=== PATIENT | female | born 1950 | race Caucasian/White ===

== ENCOUNTER 2018-05-20 16:29 | Inpatient (IN) ==
[2018-05-20 16:43] LABS: BE -4.4 mmoll (-3.0-3.0); BLOOD TYPE ARTERIAL; HCO3-(ACT) 21.1 mmoll (20.0-26.0); METHB 0.7 % (0.0-1.5); O2(CT) 19.3 mL/dL (15.0-23.0); PO2(98.6) 59 mmHg (60-100); SAMPLE BLOOD; SAO2 88.5 % (95.0-100.0)
[2018-05-20] MEDS ORDERED: DUONEB (A & A) INH ONE (16:49)
[2018-05-20 16:50] LABS: BASO# 0.01 X1000 (0.0-0.2); BASO% 0.1 % (0.0-0.8); HEMATOCRIT 45.4 % (37.0-47.0); HEMOGLOBIN 15.4 g/dL (12.0-16.0); IMM GRAN# 0.02 X1000 (0.0-0.04); IMM GRAN% 0.2 % (0.0-0.5); LYMPH# 0.99 X1000 (1.2-3.4); LYMPH% 11.2 % (20.5-51.1); MCHC 33.9 g/dL (33-37); MCV 97.2 FL (81-99); MONO# 0.82 X1000 (0.11-0.59); MONO% 9.3 % (1.7-9.3); MPV 9.5 FL (7.4-10.4); NEUT# 7.01 X1000 (1.4-6.5); NEUT% 79.2 % (42.2-75.2); PLT 143 X1000 (130-400); RBC 4.67 XMIL (4.2-5.4); RDW 11.8 % (11.5-14.5); WBC 8.85 X1000 (4.8-10.8)
[2018-05-20] MEDS ORDERED: PREDNISONE PO ONE (16:50)
[2018-05-20] MEDS ORDERED: ALBUTEROL NEB INH ONE (16:50)
[2018-05-20 17:18] LABS: pH(98.6) 7.25 (7.35-7.45)
[2018-05-20 17:19] LABS: PCO2(98.6) 54 mmHg (35-45)
[2018-05-20 17:20] LABS: ALLEN TEST YES; MODALITY ROOM AIR
[2018-05-20 17:48] LABS: AGAP 15; ALBUMIN 4.1 g/dL (3.5-5.0); ALKALINE PHOSPHATASE 180 U/L (32-104); BUN 21 mg/dL (8-22); CALCIUM 9.2 mg/dL (8.8-10.2); CHLORIDE 92 mmol/L (98-107); COSMO 266; CREATININE 0.7 mg/dL (0.5-0.9); ESTIMATED GFR > 60; GLUCOSE 101 mg/dL (70-104); GOT 104 U/L (10-30); GPT 124 U/L (10-36); MAGNESIUM 1.8 mg/dL (1.5-2.7); POTASSIUM 4.4 mmol/L (3.5-5.1); SODIUM 131 mmol/L (136-145); TCO2 24 mmol/L (25-35); TOTAL PROTEIN 7.2 g/dL (6.3-8.3)
--- NOTE | 2018-05-20 18:28 | ED EKG INTERP ---
This chart was entered by Heidy Clifford Scribe, acting as scribe for Juan Carr MD. EKG Interpretation - EKG Time of EKG reading by physician:: 18:19 EKG Read and Signed by:: Juan Carr EKG Interpretation (*Must complete 3 of following elements*): Normal Rate: 96 Rhythm: sinus with short [place]: normal QRS: normal TX Interval: shortened ST Wave: normal Attestation - Physician/ HEIKE Attestation Patient care was provided by Advanced Practice Provider:: No The physician spent face to face time with patient:: Yes Advanced Practice Provider documentation review:: Supervising physician onsite and consulted in the evaluation and care of this patient. The physician did have a face to face encounter with the patient. This chart was documented by the indicated scribe, (Heidy Clifford Scribe) and accurately reflects the services I performed and decisions made by me, Juan Carr MD, as attested by the provider's signature.
[2018-05-20 18:31] LABS: CK INDEX 3.5 (0.0-2.5); CK-MB 13.48 ng/mL (0.0-5.0)
--- NOTE | 2018-05-20 18:35 | PROVIDER DOCUMENTATION ---
This chart was entered by Alpesh Mayes Scribe, acting as scribe for Juan Carr MD. HPI-Respiratory General - General Chief Complaint: Shortness of Breath Stated Complaint: sob Time Seen by Provider: 05/20/18 16:31 Source: patient Allergies/Adverse Reactions: Patient Allergies Allergy/AdvReac Type Severity Reaction Status Date / Time ciprofloxacin [From Cipro] Allergy Intermediate RASH Verified 02/19/12 11:55 ciprofloxacin HCl * Allergy Intermediate RASH Verified 02/19/12 11:55 [From Cipro] Home Medications: Home Medication List Medication Instructions Recorded Confirmed Last Taken Type Albuterol Sulfate [Ventolin Hfa] 2 puff IH BID PRN PRN 02/19/12 02/19/12 04:30 History Budesonide/Formoterol Fumarate 2 puff IH BID 02/19/12 02/19/12 02/20/12 04:30 History [Symbicort 160-4.5 Mcg Inhaler] Calcium 500 mg PO DAILY 02/19/12 02/19/12 02/18/12 History Calcium Carbonate/Vitamin D3 1,200 mg DAILY 02/19/12 02/19/12 02/18/12 History [Calcium 1,000 + D3 Caplet] Cetirizine HCl [Zyrtec] 10 mg PO DAILY 02/19/12 02/19/12 Unknown History Cyclobenzaprine [Flexeril] 5 mg PO DAILY PRN PRN 02/19/12 02/19/12 Unknown History Docusate Sodium [Stool Softener] 100 mg PO HS 02/19/12 02/19/12 02/20/12 23:00 History Hydrochlorothiazide 12.5 mg PO DAILY 02/19/12 02/19/12 02/19/12 06:00 History Hydrocodone/Acetaminophen [Lortab 1 PO Q4H PRN 02/19/12 02/19/12 02/18/12 History 7.5-500 Tablet] Melatonin/Pyridoxine [Melatonin 5 1 PO HS 02/19/12 02/19/12 02/19/12 23:00 History mg Tablet] Metoprolol Succinate E.r. [Toprol 100 mg PO DAILY 02/19/12 02/19/12 02/19/12 23: 00 History Xl] Omeprazole [Prilosec] 40 mg PO DAILY 02/19/12 02/19/12 Unknown History SIMVAstatin [Zocor] 40 mg PO QHS 02/19/12 02/19/12 02/19/12 23:00 History Simethicone [Gas-X] 1 PO TID 02/19/12 02/19/12 02/19/12 13:00 History Tetrahydrozoline HCl/Zn Sulf [Eye 2 drop BOTH EYES PRN PRN 02/19/12 02/19/1207/02 04:30 History Drops Allergy Relief] Hydrocodone/Acetaminophen [Lorcet 1 - 2 each PO Q4H PRN PRN #20 02/25/12 Unknown Rx Plus Tablet] tablet - History of Present Illness-Resp Nature of Presenting Problem: 67 yof presents with hx of copd with cc of worsening sob for 1 week. Reports quit smoking 2 weeks ago. Reports uses husbands nebulizer with no relief and uses an inhaler with no relief. Pt room air on arrival was 85%. Quality of Pain: reports: none Severity in ED: reports: severe Review of Systems - Adult - REVIEW OF SYSTEMS - ADULT Constitutional: denies: chills, fever, fatique Eyes: reports: no symptoms reported Ears, Nose, Mouth & Throat: denies: ear pain, sinus problem, throat pain Cardiovascular: denies: chest pain, irregular heart rate, syncope Respiratory: reports: shortness of breath. denies: cough, pleurisy, wheezing Gastrointestinal: denies: abdominal pain, diarrhea, nausea, vomiting Genitourinary: denies: dysuria, frequent UTI's, urgency Musculoskeletal: reports: no symptoms reported Integumentary: reports: no symptoms reported Neurological: reports: no symptoms reported Psychiatric: reports: no symptoms reported Endocrine: reports: no symptoms reported Hematologic/Lymphatic: reports: no symptoms reported Allergic/Immunologic: reports: no symptoms reported All Other Systems: Reviewed and Negative Past History - Adult - PAST MEDICAL HISTORY-ADULT Review of Records: reports: Nursing Assessment Review, Medications Reviewed - IMMUNIZATION STATUS Childhood Immunizations: See Nurse Assessment Flu Vaccine: See Nurse Assessment - FAMILY HISTORY Family History: reviewed, not pertinent - SOCIAL HISTORY Smoking: other (former) Substance Use: none/never Physical Exam-General - PHYSICAL EXAM-ADULT Initial Vital Signs Reviewed: Yes - CONSTITUTIONAL General Appearance: alert, moderate distress. negative: appears well - EYES Eyes: PERRL/EOMI - HEAD, EARS, NOSE, MOUTH & THROAT HENMT: normal ENT inspection, TMs normal, pharynx normal - NECK Neck: non-tender, full range of motion, supple, normal inspection - RESPIRATORY Respiratory: chest non-tender, respiratory distress, decreased breath sounds ( Bilateral), accessory muscle use, increased rate - CARDIOVASCULAR Cardiovascular: tachycardia - MUSCULOSKELETAL Back Exam: normal inspection Extremity: normal range of motion, non-tender, normal gait - SKIN Integumentary: normal color, normal turgor, warm/dry - NEUROLOGIC Neurologic: grossly normal - PSYCHIATRIC Psych/Mental Status: normal mood/affect, normal thought content, normal thought process, oriented x 3 Progress - PLAN OF CARE/RESULTS Progress/Plan/Lab Results: Vital Signs - 8 hr 05/20/18 16:31 05/20/18 16:47 05/20/18 18:10 Temperature 98 F Pulse Rate 98 H 100 H 96 H Respiratory Rate 29 H 24 20 Blood Pressure 181/103 132/70 O2 Sat by Pulse Oximetry 92 L 98 92 L Laboratory Results - last 24 hr 05/20/18 05/20/18 05/20/18 16:10 16:35 16:35 WBC RBC Hgb Hct MCV MCH MCHC RDW Std Deviation Plt Count MPV Immature Gran % (Auto) Neut % (Auto) Lymph % (Auto) Stokes % (Auto) Eos % (Auto) Baso % (Auto) Immature Gran # (Auto) Neut # (Auto) Lymph # (Auto) Stokes # (Auto) Eos # (Auto) Baso # (Auto) D-Dimer, Quantitative Specimen Type ARTERIAL Sample Site R RADIAL pH 7.25 L pCO2 54 H* pO2 59 L HCO3 21.1 Base Excess -4.4 L Oxyhemoglobin 86.0 L* ABG O2 Sat (Calculated) 19.3 ABG O2 Saturation 88.5 L ABG Carboxyhemoglobin 2.10 ABG Methemoglobin 0.7 Itz Test YES A-a O2 Difference 23.0 Total Hemoglobin 16.0 Lactate 1.20 Blood Gas Modality ROOM AIR FiO2 % 21.0 Sodium Potassium Chloride Carbon Dioxide Anion Gap BUN Creatinine Estimated GFR/1.73 m2 BUN/Creatinine Ratio Glucose Calculated Osmolality Calcium Magnesium Total Bilirubin AST ALT Alkaline Phosphatase Creatine Kinase 385 H Creatine Kinase Index 3.5 H CK-MB (CK-2) 13.48 H Troponin T < 0.010 [id number] Pept Total Protein Albumin Globulin Albumin/Globulin Ratio 05/20/18 05/20/18 05/20/18 16:35 16:35 16:35 WBC 8.85 RBC 4.67 Hgb 15.4 Hct 45.4 MCV 97.2 MCH 33.0 H MCHC 33.9 RDW Std Deviation 11.8 Plt Count 143 MPV 9.5 Immature Gran % (Auto) 0.2 Neut % (Auto) 79.2 H Lymph % (Auto) 11.2 L Stokes % (Auto) 9.3 Eos % (Auto) 0.0 Baso % (Auto) 0.1 Immature Gran # (Auto) 0.02 Neut # (Auto) 7.01 H Lymph # (Auto) 0.99 L Stokes # (Auto) 0.82 H Eos # (Auto) 0.00 Baso # (Auto) 0.01 D-Dimer, Quantitative 0.81 H Specimen Type Sample Site pH pCO2 pO2 HCO3 Base Excess Oxyhemoglobin ABG O2 Sat (Calculated) ABG O2 Saturation ABG Carboxyhemoglobin ABG Methemoglobin Itz Test A-a O2 Difference Total Hemoglobin Lactate Blood Gas Modality FiO2 % Sodium 131 L Potassium 4.4 Chloride 92 L Carbon Dioxide 24 L Anion Gap 15 BUN 21 Creatinine 0.7 Estimated GFR/1.73 m2 > 60 BUN/Creatinine Ratio 30 Glucose 101 Calculated Osmolality 266 Calcium 9.2 Magnesium 1.8 Total Bilirubin 0.30 AST 104 H ALT 124 H Alkaline Phosphatase 180 H Creatine Kinase Creatine Kinase Index CK-MB (CK-2) Troponin T Xrh-S-[id number] Pept Total Protein 7.2 Albumin 4.1 Globulin 3.0 Albumin/Globulin Ratio 1.0 05/20/18 16:35 WBC RBC Hgb Hct MCV MCH MCHC RDW Std Deviation Plt Count MPV Immature Gran % (Auto) Neut % (Auto) Lymph % (Auto) Stokes % (Auto) Eos % (Auto) Baso % (Auto) Immature Gran # (Auto) Neut # (Auto) Lymph # (Auto) Stokes # (Auto) Eos # (Auto) Baso # (Auto) D-Dimer, Quantitative Specimen Type Sample Site pH pCO2 pO2 HCO3 Base Excess Oxyhemoglobin ABG O2 Sat (Calculated) ABG O2 Saturation ABG Carboxyhemoglobin ABG Methemoglobin Itz Test A-a O2 Difference Total Hemoglobin Lactate Blood Gas Modality FiO2 % Sodium Potassium Chloride Carbon Dioxide Anion Gap BUN Creatinine Estimated GFR/1.73 m2 BUN/Creatinine Ratio Glucose Calculated Osmolality Calcium Magnesium Total Bilirubin AST ALT Alkaline Phosphatase Creatine Kinase Creatine Kinase Index CK-MB (CK-2) Troponin T [id number] Pept 1292 H Total Protein Albumin Globulin Albumin/Globulin Ratio Orders Category Date Time Status Cardiac Monitoring DIRECTED Care 05/20/18 16:36 Active Nursing- Obtain EKG once Care 05/20/18 16:35 Active Oxygen Therapy- ED Nursing DIRECTED Care 05/20/18 16:36 Active Saline Loc NOW Care 05/20/18 16:36 Active CHEST-PORTABLE [RAD] Stat Exams 05/20/18 16:35 Taken ABG [RESP] Routine Lab 05/20/18 16:10 Completed ABG [RESP] Routine Lab 05/20/18 16:36 Ordered CBC WITH DIFF [HEME] Stat Lab 05/20/18 16:35 Completed CK PROFILE [SP CHEM] Stat Lab 05/20/18 16:35 Completed COMPREHENSIVE METABOLIC PANEL [CHEM] Stat Lab 05/20/18 16:35 Completed D-DIMER [COAG] Stat Lab 05/20/18 16:35 Completed MAGNESIUM [CHEM] Stat Lab 05/20/18 16:35 Completed PRO B-NATRIURETIC PEPTIDE Stat Lab 05/20/18 16:35 Completed TROPONIN T Stat Lab 05/20/18 16:35 Completed Albuterol 2.5MG/Ipratrop 0.5MG [Duoneb (A & A)] Med 05/20/18 16:49 Discontinued 3 ml INH NOW ONE Albuterol [Albuterol Neb] Med 05/20/18 16:50 Discontinued 5 mg INH NOW ONE Prednisone Med 05/20/18 16:50 Discontinued 60 mg PO NOW ONE Aerosol Treatments Routine Oth 05/20/18 16:49 Active Aerosol Treatments Routine Oth 05/20/18 16:50 Active Aerosol Treatments Stat Oth 05/20/18 16:35 Active Aerosol Treatments Stat Oth 05/20/18 16:49 Active Aerosol Treatments Stat Oth 05/20/18 16:50 Active CP/SOB/Palp >45 yrs of Age Stat Oth 05/20/18 16:35 Ordered EKG [EKG] Stat Ther 05/20/18 16:36 Ordered Result Diagrams: 05/20/18 16:35 05/20/18 16:35 - REASSESSMENT Reassessment #1 Time Reassessed: 17:54 (Pt doing better and no has been placed on Nasal cannula) Status: improving - CONSULTS/PCP/HOSPITALIST Notification #1 *Consult/PCP/Hospitalist*: Dr. Zhu Time Discussed: 17:55 Consult Disposition: Admit Departure - Departure Date of Disposition Decision: 05/20/18 Time of Disposition Decision: 17:55 DIAGNOSIS: COPD exacerbation, D-dimer, elevated Disposition: ADMITTED INPATIENT [address] [place] [address] Medical Emergency: Emergent Condition: Stable Referrals and Follow-Ups: None,PCP [Primary Care Provider] - - Critical Care Note This patient required my direct & personal management of CC.: Yes Total Time (mins): 35 Critical Care Statement: This patient required my direct personal management to treat or rule out processes, the absence of which, could potentiallly result in sudden, clinically significant life or limb threatening deterioration. Attestation - Physician/ HEIKE Attestation Patient care was provided by Advanced Practice Provider:: No The physician spent face to face time with patient:: Yes Advanced Practice Provider documentation review:: Supervising physician onsite and consulted in the evaluation and care of this patient. The physician did have a face to face encounter with the patient. This chart was documented by the indicated scribe, (Alpesh Mayes Scribe) and accurately reflects the services I performed and decisions made by me, Juan Carr MD, as attested by the provider's signature.
[2018-05-20] MEDS ORDERED: ROCEPHIN 1 GM in NS 50 ML IV SCH (18:45)
--- NOTE | 2018-05-20 19:05 | HISTORY AND PHYSICAL ---
67-year-old female with history of COPD presenting from home with shortness of breath. She has been getting worse for about a week. She has a nonproductive cough or whitish foamy sputum. She has chest pressure with deep breathing. She has been using her 's nebulizer and oxygen with not much improvement. Room air vitals were 85% when she 1st presented. She has been unable to smoke for the last 2 days because of just shortness of breath. Patient was evaluated in ER, felt to have COPD exacerbation and admitted as such. Her chest x-ray does not clearly show infiltrate although there is some haziness at the bottom of the lungs but in any case patient admitted for acute COPD exacerbation. PAST MEDICAL HISTORY: 1. COPD. 2. Hypertension. 3. Dyslipidemia. Denies CAD. Denies diabetes. PAST SURGICAL HISTORY: Think she has had any major surgeries abdominal and otherwise. SOCIAL HISTORY: She smokes half a pack a day she has done that for probably about 42 years. I am going to say she at least has a 20 to 25 pack year history of smoking. D-dimer was mildly elevated. ALLERGIES: To Cipro . FAMILY HISTORY: Father had CAD from that and stroke, initially he had issues in his 50s. Mother had cancer not otherwise described. Another 2 brothers had CAD also in their 50s. She has 1 sister has no health problems. REVIEW OF SYSTEMS: Otherwise negative times a 10 point review. PHYSICAL EXAMINATION: VITAL SIGNS: Blood pressure is 132/70, heart rate 96, respiratory 20, 92% on 2 L, 98 temperature . GENERAL: Well-developed female in no acute distress. HEENT: Was normocephalic atraumatic. Pupils equal, round, reactive to light. Extraocular movements were intact. She had moist mucous membranes. NECK: Supple. CARDIOVASCULAR: Regular rate and rhythm. PULMONARY: Diminished throughout, rhonchi and wheezing throughout, increased work of breathing. GI: Soft, nontender, nondistended. Bowel sounds are positive. EXTREMITY: No clubbing or cyanosis. LYMPHATIC: No peripheral edema. NEUROLOGICAL: Nonfocal. MUSCULOSKELETAL: Was 4/5 in all 4 extremities. LABORATORY DATA: White count 8, hemoglobin and hematocrit 15 and 45, platelets 143,000, pH 725, pCO2 54, PaO2 59, sodium 131, AST and ALT of 104 and 124. CKs were normal. CK was elevated index was elevated and troponin was negative and waiting on complete read on chest x-ray. ASSESSMENT: This is a 67-year-old female with chronic obstructive pulmonary disease presenting with acute hypoxic respiratory failure and chronic obstructive pulmonary disease exacerbation. 1. Chronic obstructive pulmonary disease exacerbation. Continue nebulizer treatments, antibiotics, steroids and we will clinically follow for improvement. 2. Acute hypoxic respiratory failure. She is on breathing treatments, steroids, , will evaluate but I anticipate she probably will need treatment. 3. Elevated D-dimer. We will continue treatment and follow closely. We will start off with venous Dopplers and we may have to advance to CT angiogram if unavailable. Discharge condition pending her clinical workup. cc: Rene Zhu MD MTDD
--- NOTE | 2018-05-20 19:38 | Diag Imaging Result Doc PS360 ---
EXAM: CHEST-PORTABLE INDICATION: sob copd TECHNIQUE: One view COMPARISON: 03/28/2012 FINDINGS: The lungs are hyperinflated, stable. There are increased interstitial markings at the lung bases suggesting mild edema and/or pneumonia. No significant pleural fluid collection is identified. There is no evidence of pneumothorax. There is stable scarring at the right lung apex. The cardiac silhouette is unremarkable. IMPRESSION: COPD changes and mild interstitial infiltrates at the lung bases as described. Electronically signed by Yunior Rocha 05/20/2018 7:36 PM
--- NOTE | 2018-05-20 20:37 | EKG Report ---
Test Performed on : 05/20/2018 6:17:21 PM Test Reason : sob Blood Pressure : / mmHG Vent. Rate : 096 BPM Atrial Rate : 096 BPM P-R Int : 106 ms QRS Dur : 074 ms QT Int : 328 ms P-R-T Axes : 072 072 076 degrees QTc Int : 414 ms Sinus rhythm. with short HI Otherwise normal ECG No previous ECGs available Unconfirmed Result
[2018-05-20] MEDS: DUONEB (A & A) INH SCH ×2 (20:47→23:30)
[2018-05-20] MEDS: SOLU-MEDROL IV SCH (23:30)
[2018-05-20] MEDS: LOVENOX SUBQ SCH (23:31)
[2018-05-20] MEDS: DOXYCYCLINE 100 MG in NS 250 ML IV SCH (23:35)
[2018-05-21] MEDS: DUONEB (A & A) INH SCH ×3 (03:30→11:30)
[2018-05-21] MEDS: SOLU-MEDROL IV SCH ×3 (04:19→21:35)
[2018-05-21] MEDS: TYLENOL PO PRN ×2 (04:32→19:33)
[2018-05-21] MEDS ORDERED: ATIVAN IV ONE (05:03)
[2018-05-21 06:33] LABS: LYMPH# 0.24 X1000 (1.2-3.4); LYMPH% 3.9 % (20.5-51.1); MCH 33.3 PG (27-31); MCHC 34.1 g/dL (33-37); MCV 97.6 FL (81-99); MONO# 0.19 X1000 (0.11-0.59); MONO% 3.1 % (1.7-9.3); MPV 9.8 FL (7.4-10.4); NEUT# 5.67 X1000 (1.4-6.5); PLT 134 X1000 (130-400); RDW 11.8 % (11.5-14.5)
[2018-05-21 06:48] LABS: AGAP 14; ALBUMIN 3.4 g/dL (3.5-5.0); ALKALINE PHOSPHATASE 127 U/L (32-104); BUN 15 mg/dL (8-22); CALCIUM 8.4 mg/dL (8.8-10.2); CHLORIDE 97 mmol/L (98-107); COSMO 271; CREATININE 0.6 mg/dL (0.5-0.9); ESTIMATED GFR > 60; GLUCOSE 161 mg/dL (70-104); GOT 59 U/L (10-30); GPT 82 U/L (10-36); SODIUM 133 mmol/L (136-145); TCO2 22 mmol/L (25-35)
[2018-05-21 07:25] LABS: BLOOD TYPE ARTERIAL; SAMPLE BLOOD
[2018-05-21 08:01] LABS: LYMPHS 4 % (21-51); MONO 3 % (1-9); SEGS 93 % (42-75)
[2018-05-21] MEDS ORDERED: VISINE OPH DROPS BOTH EYES PRN (10:58)
[2018-05-21] MEDS ORDERED: DOXYCYCLINE ONE (11:04)
[2018-05-21] MEDS: DOXYCYCLINE 100 MG in NS 250 ML IV SCH ×2 (12:09→22:00)
--- NOTE | 2018-05-21 12:14 | Diag Imaging Result Doc PS360 ---
EXAM: CT ANGIOGRM PULMONARY ARTERIES INDICATION: hypoxia TECHNIQUE: This exam was performed using automated exposure control, adjustment of mA or kV according to patient size, and/or use of iterative reconstruction technique. Thin section axial images and 3-D MIPS were obtained. COMPARISON: None. FINDINGS: There is no evidence of pulmonary embolism. There is mild aortic atherosclerotic disease. There is no evidence of aortic dissection or aneurysm. There is no cardiomegaly. There is no evidence of significant mediastinal or hilar lymphadenopathy. There is very severe centrilobular and paraseptal emphysema. There is there is mild scarring, mainly at the lung bases. There is a tiny calcific granuloma in the left lower lobe. The lungs are grossly clear, otherwise. There is no pleural fluid collection and no pneumothorax. Limited views of the upper abdomen are grossly unremarkable. IMPRESSION: 1.Very severe pulmonary emphysema. 2.No evidence of pulmonary embolism or other definite acute chest pathology. Electronically signed by Yunior Rocha 05/21/2018 12:12 PM
[2018-05-21] MEDS: NEURONTIN PO SCH ×2 (12:17→16:20)
[2018-05-21 12:35] LABS: BE -0.4 mmoll (-3.0-3.0); BLOOD TYPE ARTERIAL; HCO3-(ACT) 24.3 mmoll (20.0-26.0); METHB 0.4 % (0.0-1.5); O2(CT) 19.7 mL/dL (15.0-23.0); PCO2(98.6) 50 mmHg (35-45); PO2(98.6) 55 mmHg (60-100); SAMPLE BLOOD; THB 15.9 g/dL (11.5-17.4); pH(98.6) 7.33 (7.35-7.45)
[2018-05-21 12:36] LABS: ALLEN TEST YES; MODALITY VENTIMASK; O2HB 88.2 % (95.0-99.0)
[2018-05-21] MEDS: DUONEB (A & A) INH PRN (12:54)
[2018-05-21] MEDS: ROBITUSSIN-AC PO PRN ×2 (13:21→19:35)
[2018-05-21] MEDS ORDERED: XOPENEX NEB ONE (15:20)
[2018-05-21] MEDS: ATROVENT NEB INH SCH ×3 (15:22→23:01)
[2018-05-21] MEDS: XOPENEX NEB INH SCH ×3 (15:23→23:01)
[2018-05-21] MEDS ORDERED: XOPENEX NEB INH SCH (15:30)
[2018-05-21] MEDS: ATIVAN IV PRN ×2 (15:46→19:33)
[2018-05-21 15:47] LABS: BILIRUBIN URINE NEGATIVE (NEGATIVE); BLOOD URINE NEGATIVE (NEGATIVE); CLARITY CLEAR (CLEAR); COLOR YELLOW; GLUCOSE URINE NEGATIVE (NEGATIVE); KETONE URINE 2+(Moderate) mg/dL (NEGATIVE); LEUKOCYTES URINE NEGATIVE (NEGATIVE); NITRITE URINE NEGATIVE (NEGATIVE); PROTEIN URINE 1+(30 mg/dL) mg/dL (NEGATIVE); SP GRAVITY URINE 1.015; UROBILINOGEN URINE NORMAL
[2018-05-21 15:48] LABS: URINE BACTERIA NEGATIVE /HFP; URINE CAST NONE SEEN /LPF; URINE CRYSTAL NONE SEEN /HPF; URINE EPITHELIAL CELLS <10 /HPF (<10); URINE RBC <10 /HPF (<10); URINE SOURCE CATH; URINE WBC <10 /HPF (<10); URINE YEAST NONE SEEN /HPF
[2018-05-21] MEDS ORDERED: LOPRESSOR IV PRN (16:16)
[2018-05-21] MEDS ORDERED: LOPRESSOR IV ONE (16:16)
[2018-05-21] MEDS ORDERED: SOLU-MEDROL IV ONE (17:02)
[2018-05-21] MEDS ORDERED: CARDIZEM IV ONE (17:03)
[2018-05-21] MEDS: MORPHINE IV PRN ×2 (17:12→21:38)
--- NOTE | 2018-05-21 17:29 | PROGRESS NOTE ---
DATE: 05/21/2018 SUBJECTIVE: The patient has no major complaints except persistent unrelenting shortness of breath. She seems to be worse than she was yesterday and more tachycardic. OBJECTIVE: Vital Signs: Blood pressure 159/88, heart rate of 148, respiratory rate of 28. She is down into the 120s now. Temp was 99.4. Cardiovascular: She is tachy. Pulmonary: Diffuse end-expiratory wheezes. Gastrointestinal: Soft, nontender, nondistended. Bowel sounds were positive. LABORATORY DATA: Her white count is still 6, hemoglobin and hematocrit 14 and 41, platelets 134,000. Her gas from this morning actually had improved. PCO2 7.33, pCO2 50, PaO2 55. Sodium 133. AST and ALT are 59 and 82. PROBLEM LIST: 1. COPD exacerbation, acute. We will increase her steroids. I have changed her breathing treatments to Xopenex because of her relative tachycardia, but clinically she is not much improved. We are going to give her some positive-pressure ventilation to see if that may assist. If she is not much improved within the next 12 to 24 hours, we may have to consider getting pulmonary evaluation and transferring her. 2. Acute hypoxic respiratory failure. We have ruled out PE. She does have severe COPD. We will continue the current treatments and follow closely. 3. Elevated D-dimer. Waiting on venous Dopplers. CTA was negative. They are still pending. I think this is just pure severe bronchospasm with some component of infection. We will continue the Rocephin for the time being and doxycycline and follow. DISPOSITION: Pending her clinical status. cc: Rene Zhu MD
[2018-05-21] MEDS: PROTONIX IV SCH (18:01)
[2018-05-21] MEDS: ROCEPHIN 1 GM in NS 50 ML IV SCH (18:01)
[2018-05-21] MEDS: SODIUM CHLORIDE 0.9% INJ SCH (18:01)
[2018-05-21] MEDS: CARDIZEM PO SCH (19:33)
[2018-05-21] MEDS ORDERED: BLISTEX MEDICATED BERRY LIP BALM TOP PRN (21:02)
[2018-05-21] MEDS: LOVENOX SUBQ SCH (21:34)
[2018-05-21] MEDS: ZOCOR PO SCH (21:35)
[2018-05-21] MEDS: FLEXERIL PO PRN (22:27)
[2018-05-21] MEDS: SYMBICORT 160/4.5 MICROGM INHALER INH SCH (23:02)
[2018-05-22] MEDS ORDERED: NS 1,000 ML IV ONE (00:24)
[2018-05-22] MEDS: NS 1,000 ML IV SCH ×4 (01:00→17:29)
[2018-05-22] MEDS: COLACE PO SCH ×2 (01:31→21:31)
[2018-05-22] MEDS: CARDIZEM PO SCH ×4 (02:16→21:34)
[2018-05-22] MEDS: SOLU-MEDROL IV SCH ×3 (03:26→16:06)
[2018-05-22] MEDS: ROBITUSSIN-AC PO PRN ×2 (03:26→20:19)
[2018-05-22] MEDS: TYLENOL PO PRN ×2 (03:26→20:19)
[2018-05-22] MEDS: ATROVENT NEB INH SCH ×6 (03:29→23:05)
[2018-05-22] MEDS: XOPENEX NEB INH SCH ×6 (03:29→23:05)
[2018-05-22 06:01] LABS: HEMATOCRIT 45.3 % (37.0-47.0); HEMOGLOBIN 14.8 g/dL (12.0-16.0); MCH 33.6 PG (27-31); MCHC 32.7 g/dL (33-37); MCV 102.7 FL (81-99); MPV 9.9 FL (7.4-10.4); RBC 4.41 XMIL (4.2-5.4); RDW 12.6 % (11.5-14.5); WBC 9.3 X1000 (4.8-10.8)
[2018-05-22 06:06] LABS: BLOOD TYPE ARTERIAL; HCO3-(ACT) 22.5 mmoll (20.0-26.0); METHB 0.7 % (0.0-1.5); O2(CT) 16.4 mL/dL (15.0-23.0); O2HB 94.5 % (95.0-99.0); PCO2(98.6) 50 mmHg (35-45); PO2(98.6) 80 mmHg (60-100); SAMPLE BLOOD; SAO2 95.9 % (95.0-100.0); THB 12.3 g/dL (11.5-17.4); pH(98.6) 7.29 (7.35-7.45)
[2018-05-22 06:09] LABS: ALLEN TEST YES; MODALITY BI PAP
[2018-05-22 06:13] LABS: AGAP 12; ALBUMIN 3.5 g/dL (3.5-5.0); ALKALINE PHOSPHATASE 104 U/L (32-104); BUN 14 mg/dL (8-22); CALCIUM 7.9 mg/dL (8.8-10.2); CHLORIDE 102 mmol/L (98-107); COSMO 276; CREATININE 0.5 mg/dL (0.5-0.9); ESTIMATED GFR > 60; GLUCOSE 133 mg/dL (70-104); GOT 61 U/L (10-30); GPT 66 U/L (10-36); POTASSIUM 4.5 mmol/L (3.5-5.1); SODIUM 137 mmol/L (136-145); TCO2 23 mmol/L (25-35); TOTAL PROTEIN 5.8 g/dL (6.3-8.3)
--- NOTE | 2018-05-22 07:35 | Diag Imaging Result Doc PS360 ---
EXAM: CHEST-PORTABLE HISTORY: dyspnea TECHNIQUE: Chest two views COMPARISON: 05/20/2018 FINDINGS: The lungs are hyperexpanded. No cardiomegaly. Mild increased interstitial markings bilaterally. No consolidation. No pleural effusions identified. IMPRESSION: 1.Emphysema 2.Mild increased interstitial markings likely representing fibrosis Electronically signed by Ernesto Salguero 05/22/2018 7:33 AM
[2018-05-22] MEDS: SYMBICORT 160/4.5 MICROGM INHALER INH SCH ×2 (08:29→23:41)
[2018-05-22] MEDS ORDERED: PRILOSEC PO SCH (09:00)
[2018-05-22] MEDS ORDERED: TOPROL XL PO SCH (09:00)
[2018-05-22] MEDS: ZYRTEC PO SCH (09:24)
[2018-05-22] MEDS: DOXYCYCLINE 100 MG in NS 250 ML IV SCH ×2 (09:24→21:31)
[2018-05-22] MEDS: CALTRATE 600 + D PO SCH (09:24)
[2018-05-22] MEDS: NEURONTIN PO SCH ×3 (09:24→17:30)
[2018-05-22] MEDS: TUMS PO SCH (09:26)
--- NOTE | 2018-05-22 13:50 | Extremity Venous Study ---
EXAM: Venous U/S Bilateral Legs HISTORY: elevated d-dimer TECHNIQUE: Rosales scale, color Doppler, and duplex evaluation was performed. COMPARISON: None. FINDINGS: The deep veins of the bilateral lower extremities demonstrate appropriate compressibility and augmentation. No intraluminal thrombus is visualized. There is no evidence for DVT. The superficial veins appear patent. IMPRESSION: No evidence for deep venous thrombosis bilateral lower extremities. Electronically signed by Rosaura Chacko 05/22/2018 1:47 PM
[2018-05-22] MEDS: PROTONIX IV SCH (17:30)
[2018-05-22] MEDS: SODIUM CHLORIDE 0.9% INJ SCH (17:30)
[2018-05-22] MEDS: FLEXERIL PO PRN (17:34)
[2018-05-22] MEDS: ROCEPHIN 1 GM in NS 50 ML IV SCH (18:38)
--- NOTE | 2018-05-22 20:57 | PROGRESS NOTE ---
DATE: 05/22/2018 SUBJECTIVE: She got very short of breath overnight. Very concerned about that, but she is improved on BiPAP. OBJECTIVE: Vital Signs: Blood pressure 116/71, heart rate of 84, respiratory rate 21, temperature 98.2, 97% on 5 L. Cardiovascular: Regular rate and rhythm. Pulmonary: Bilateral breath sounds. Clear to auscultation. Gastrointestinal: Soft, nontender, nondistended. Bowel sounds are positive. LABORATORY DATA: 1. White count 9, hemoglobin and hematocrit 14 and 45, platelets 119,000. PH 7.29, pCO2 50, PaO2 80. That was on BiPAP yesterday. 2. COPD exacerbation, acute. We will continue treatment. She seems to be much improved. I think we could probably wean her steroids a little bit and follow. 3. Acute hypoxic and hypercapnic respiratory failure. She is on BiPAP. She does appear to be improving slowly. We will continue BiPAP intermittently. 4. Elevated D-dimer, was really nonspecific and her workup is negative as far as VTE. 5. Tobacco abuse. Advised on cessation. We will continue to follow. DISPOSITION: Hopefully off BiPAP in the next 1 to 2 days and then we can decide about going to the floor. cc: Rene Zhu MD
[2018-05-22] MEDS: ZOCOR PO SCH (21:31)
[2018-05-23] MEDS: SOLU-MEDROL IV SCH ×4 (01:48→18:19)
[2018-05-23] MEDS: MORPHINE IV PRN ×3 (02:07→16:59)
[2018-05-23] MEDS: ATROVENT NEB INH SCH ×6 (02:32→22:49)
[2018-05-23] MEDS: XOPENEX NEB INH SCH ×6 (02:32→22:49)
[2018-05-23] MEDS: CARDIZEM PO SCH ×4 (02:41→20:38)
[2018-05-23 04:15] LABS: BASO# 0.01 X1000 (0.0-0.2); BASO% 0.1 % (0.0-0.8); HEMATOCRIT 38.5 % (37.0-47.0); HEMOGLOBIN 12.2 g/dL (12.0-16.0); IMM GRAN# 0.03 X1000 (0.0-0.04); IMM GRAN% 0.4 % (0.0-0.5); LYMPH# 0.43 X1000 (1.2-3.4); LYMPH% 6.2 % (20.5-51.1); MCH 32.6 PG (27-31); MCHC 31.7 g/dL (33-37); MCV 102.9 FL (81-99); MONO# 0.44 X1000 (0.11-0.59); MONO% 6.4 % (1.7-9.3); MPV 9.7 FL (7.4-10.4); NEUT# 5.99 X1000 (1.4-6.5); NEUT% 86.9 % (42.2-75.2); PLT 110 X1000 (130-400); RBC 3.74 XMIL (4.2-5.4); RDW 12.3 % (11.5-14.5)
[2018-05-23] MEDS: NS 1,000 ML IV SCH ×3 (04:30→16:19)
[2018-05-23 05:18] LABS: BE -0.1 mmoll (-3.0-3.0); BLOOD TYPE ARTERIAL; HCO3-(ACT) 24.8 mmoll (20.0-26.0); O2(CT) 16.8 mL/dL (15.0-23.0); O2HB 95.7 % (95.0-99.0); PCO2(98.6) 50 mmHg (35-45); PO2(98.6) 108 mmHg (60-100); SAMPLE BLOOD; SAO2 97.3 % (95.0-100.0); THB 12.4 g/dL (11.5-17.4); pH(98.6) 7.33 (7.35-7.45)
[2018-05-23 05:20] LABS: ALLEN TEST YES; MODALITY BI PAP
[2018-05-23 05:43] LABS: AGAP 7; BUN 11 mg/dL (8-22); CALCIUM 7.6 mg/dL (8.8-10.2); CHLORIDE 107 mmol/L (98-107); COSMO 279; CREATININE 0.4 mg/dL (0.5-0.9); ESTIMATED GFR > 60; GLUCOSE 134 mg/dL (70-104); POTASSIUM 4.1 mmol/L (3.5-5.1); SODIUM 139 mmol/L (136-145); TCO2 25 mmol/L (25-35)
[2018-05-23 06:35] LABS: BANDS 1 % (0-1); LYMPHS 5 % (21-51); MONO 3 % (1-9); SEGS 91 % (42-75)
--- NOTE | 2018-05-23 07:36 | Diag Imaging Result Doc PS360 ---
EXAM: CHEST-PORTABLE HISTORY: dyspnea TECHNIQUE: Portable chest single view COMPARISON: 05/22/2018 FINDINGS: The lungs are hyperexpanded. No cardiomegaly. Mild increased interstitial markings. No consolidation. Questionable tiny pleural effusions. IMPRESSION: Emphysema and likely fibrosis. Electronically signed by Ernesto Salguero 05/23/2018 7:34 AM
[2018-05-23] MEDS: DUONEB (A & A) INH PRN (08:16)
[2018-05-23] MEDS: SYMBICORT 160/4.5 MICROGM INHALER INH SCH ×2 (08:28→19:05)
[2018-05-23] MEDS: ZYRTEC PO SCH (09:04)
[2018-05-23] MEDS: TUMS PO SCH (09:04)
[2018-05-23] MEDS: CALTRATE 600 + D PO SCH (09:04)
[2018-05-23] MEDS: NEURONTIN PO SCH ×3 (09:04→16:47)
[2018-05-23] MEDS: DOXYCYCLINE 100 MG in NS 250 ML IV SCH ×2 (09:05→20:37)
[2018-05-23] MEDS: ATIVAN IV PRN ×2 (12:40→20:25)
[2018-05-23] MEDS ORDERED: SOLU-MEDROL IV ONE (13:31)
[2018-05-23] MEDS ORDERED: ROBITUSSIN-AC PO PRN (13:32)
[2018-05-23] MEDS ORDERED: SOLU-MEDROL IV SCH (13:45)
[2018-05-23 14:39] LABS: HEPATITIS PROFILE ACUTE SEE COMMENTS
--- NOTE | 2018-05-23 15:34 | PROGRESS NOTE ---
DATE: 05/23/2018 SUBJECTIVE: The patient has no major complaints. I think she was doing better this morning and then late morning, she starting to have her breathing issues, wheezing, cannot catch her breath, sitting up in the tripod position. OBJECTIVE: Vital Signs: Blood pressure 137/78, heart rate 84, respiratory rate 21, temperature 98 degrees. Cardiovascular: Regular rate and rhythm. Pulmonary: Bilateral breath sounds clear to auscultation. Gastrointestinal: Soft, nontender, nondistended. Bowel sounds are positive. LABORATORY DATA: White count 6, hemoglobin and hematocrit 12 and 38, platelets 110,000. Basic was normal. PROBLEM LIST: This is a 67-year-old with chronic obstructive pulmonary disease exacerbation, severe bronchospasm, respiratory failure. 1. Acute hypercapnic/hypoxic respiratory failure. Will continue treatments. She is on BiPAP, which we are trying to use intermittently. Very slow process to get her off. She did stay on 5 L nasal cannula. She tends to get very easily worked up. Try to start some something for anxiety that is maybe not so sedating and see how she does. 2. Chronic obstructive pulmonary disease exacerbation, acute. We will continue nebulizer treatments and antibiotics. I am going to bump up her steroids because she is still having a lot of issues with that. 3. Elevated D-dimer with negative workup. Will continue to follow. DISPOSITION: Pending her clinical status. I think we are doing okay otherwise, just a very slow recovery. cc: Rene Zhu MD
[2018-05-23] MEDS: PROTONIX IV SCH (16:47)
[2018-05-23] MEDS: SODIUM CHLORIDE 0.9% INJ SCH (16:48)
[2018-05-23] MEDS: ROCEPHIN 1 GM in NS 50 ML IV SCH (18:19)
[2018-05-23] MEDS: CELEXA PO SCH (20:38)
[2018-05-23] MEDS: ZOCOR PO SCH (20:38)
[2018-05-23] MEDS: COLACE PO SCH (20:38)
[2018-05-24] MEDS: CARDIZEM PO SCH ×4 (02:43→20:21)
[2018-05-24] MEDS: SOLU-MEDROL IV SCH ×5 (02:43→23:11)
[2018-05-24] MEDS: NS 1,000 ML IV SCH ×2 (02:44→06:13)
[2018-05-24] MEDS: ATROVENT NEB INH SCH ×6 (02:59→23:04)
[2018-05-24] MEDS: XOPENEX NEB INH SCH ×7 (02:59→23:04)
[2018-05-24 05:47] LABS: BE 1.5 mmoll (-3.0-3.0); BLOOD TYPE ARTERIAL; METHB 0.7 % (0.0-1.5); O2(CT) 16.9 mL/dL (15.0-23.0); O2HB 93.6 % (95.0-99.0); PCO2(98.6) 49 mmHg (35-45); PO2(98.6) 69 mmHg (60-100); SAMPLE BLOOD; SAO2 95.1 % (95.0-100.0); THB 12.8 g/dL (11.5-17.4); pH(98.6) 7.36 (7.35-7.45)
[2018-05-24 05:49] LABS: ALLEN TEST YES; MODALITY BI PAP
[2018-05-24 07:00] LABS: BASO# 0.01 X1000 (0.0-0.2); BASO% 0.2 % (0.0-0.8); EOS# 0.01 X1000 (0.0-0.7); EOS% 0.2 % (0.0-10.0); HEMATOCRIT 38.8 % (37.0-47.0); HEMOGLOBIN 12.4 g/dL (12.0-16.0); IMM GRAN# 0.06 X1000 (0.0-0.04); IMM GRAN% 1.1 % (0.0-0.5); LYMPH# 0.46 X1000 (1.2-3.4); LYMPH% 8.3 % (20.5-51.1); MCH 32.8 PG (27-31); MCV 102.6 FL (81-99); MONO# 0.28 X1000 (0.11-0.59); NEUT# 4.74 X1000 (1.4-6.5); NEUT% 85.2 % (42.2-75.2); PLT 113 X1000 (130-400); RBC 3.78 XMIL (4.2-5.4); RDW 12.3 % (11.5-14.5); WBC 5.56 X1000 (4.8-10.8)
[2018-05-24 07:15] LABS: AGAP 7; BUN 17 mg/dL (8-22); CALCIUM 7.8 mg/dL (8.8-10.2); CHLORIDE 108 mmol/L (98-107); COSMO 287; CREATININE 0.4 mg/dL (0.5-0.9); ESTIMATED GFR > 60; GLUCOSE 141 mg/dL (70-104); POTASSIUM 3.9 mmol/L (3.5-5.1); SODIUM 142 mmol/L (136-145); TCO2 26 mmol/L (25-35)
[2018-05-24] MEDS: SYMBICORT 160/4.5 MICROGM INHALER INH SCH ×2 (07:21→19:12)
[2018-05-24 07:53] LABS: LYMPHS 4 % (21-51); MONO 5 % (1-9); SEGS 91 % (42-75)
[2018-05-24] MEDS: ATIVAN IV PRN ×3 (07:56→20:22)
[2018-05-24] MEDS: ARIXTRA SUBQ SCH (08:37)
[2018-05-24] MEDS: TUMS PO SCH (08:38)
[2018-05-24] MEDS: CALTRATE 600 + D PO SCH (08:38)
[2018-05-24] MEDS: NEURONTIN PO SCH ×3 (08:38→17:25)
[2018-05-24] MEDS: ZYRTEC PO SCH (08:38)
[2018-05-24] MEDS: DOXYCYCLINE 100 MG in NS 250 ML IV SCH ×2 (08:39→20:36)
[2018-05-24] MEDS: MORPHINE IV PRN ×2 (08:53→20:22)
[2018-05-24] MEDS ORDERED: LASIX IV ONE (14:39)
--- NOTE | 2018-05-24 15:35 | PROGRESS NOTE ---
DATE: 05/24/2017 SUBJECTIVE: Patient has no focal complaints. She seems to be breathing a bit better. OBJECTIVE: Blood pressure is 150/93, heart rate of 108, respiratory rate 20, temperature 97 degrees, 99 on 3 L.Cardiovascular: Regular rate and rhythm. Pulmonary: Bilateral breath sounds, clear to auscultation. GI: Soft, nontender, nondistended. Bowel sounds are positive. She seems to be doing a little bit better although somewhat somnolent. She has been off BiPAP for about 6 hours. LABORATORY: White count 5.5, hemoglobin and hematocrit 12 and 38, platelets 113,000, pH 7.36, pCO2 49, PaO2 69, basic was normal. PROBLEM LIST: 1. Acute hypercapnic hypoxic respiratory failure weaning her off BiPAP, she seems to be doing okay, will continue breathing treatments. I have cut down her dose on Xopenex because it seems to exacerbate her situation. We will continue steroids and follow closely. 2. Acute chronic obstructive pulmonary disease exacerbation. Continue nebulizer treatments, antibiotics. 3. Elevated D-dimer without evidence of venous thromboembolism, will continue prophylaxis. 4. Tobacco abuse. I have counseled tobacco abuse. Prognosis still guarded. Will continue to follow. cc: Rene Zhu MD
[2018-05-24] MEDS: PROTONIX IV SCH (17:25)
[2018-05-24] MEDS: SODIUM CHLORIDE 0.9% INJ SCH (17:25)
[2018-05-24] MEDS: ROCEPHIN 1 GM in NS 50 ML IV SCH (18:42)
[2018-05-24] MEDS: ZOCOR PO SCH (20:19)
[2018-05-24] MEDS: COLACE PO SCH (20:20)
[2018-05-24] MEDS: CELEXA PO SCH (20:20)
[2018-05-25] MEDS: CARDIZEM PO SCH ×4 (02:58→17:28)
[2018-05-25] MEDS: ATROVENT NEB INH SCH ×6 (03:22→22:57)
[2018-05-25] MEDS: XOPENEX NEB INH SCH ×6 (03:23→22:57)
[2018-05-25] MEDS: ATIVAN IV PRN ×2 (04:25→13:56)
[2018-05-25] MEDS: SOLU-MEDROL IV SCH ×3 (05:36→20:43)
[2018-05-25 06:20] LABS: BE 11.5 mmoll (-3.0-3.0); BLOOD TYPE ARTERIAL; HCO3-(ACT) 33.8 mmoll (20.0-26.0); METHB 0.9 % (0.0-1.5); O2(CT) 16.6 mL/dL (15.0-23.0); O2HB 94.9 % (95.0-99.0); PO2(98.6) 84 mmHg (60-100); SAMPLE BLOOD; SAO2 96.5 % (95.0-100.0); THB 12.4 g/dL (11.5-17.4); pH(98.6) 7.45 (7.35-7.45)
[2018-05-25 06:23] LABS: ALLEN TEST YES; MODALITY BI PAP; PCO2(98.6) 54 mmHg (35-45)
[2018-05-25 07:20] LABS: AGAP 10; BASO# 0.01 X1000 (0.0-0.2); BASO% 0.2 % (0.0-0.8); BUN 23 mg/dL (8-22); CALCIUM 8.1 mg/dL (8.8-10.2); CHLORIDE 102 mmol/L (98-107); COSMO 294; CREATININE 0.5 mg/dL (0.5-0.9); ESTIMATED GFR > 60; GLUCOSE 162 mg/dL (70-104); HEMATOCRIT 38.8 % (37.0-47.0); HEMOGLOBIN 12.4 g/dL (12.0-16.0); IMM GRAN# 0.04 X1000 (0.0-0.04); IMM GRAN% 0.9 % (0.0-0.5); LYMPH# 0.46 X1000 (1.2-3.4); LYMPH% 9.8 % (20.5-51.1); MAGNESIUM 2.2 mg/dL (1.5-2.7); MCH 32.6 PG (27-31); MCV 102.1 FL (81-99); MONO% 6.4 % (1.7-9.3); MPV 9.7 FL (7.4-10.4); NEUT# 3.89 X1000 (1.4-6.5); NEUT% 82.7 % (42.2-75.2); PLT 111 X1000 (130-400); POTASSIUM 3.7 mmol/L (3.5-5.1); RDW 12.1 % (11.5-14.5); SODIUM 144 mmol/L (136-145); TCO2 32 mmol/L (25-35)
[2018-05-25] MEDS: SYMBICORT 160/4.5 MICROGM INHALER INH SCH ×2 (08:32→19:29)
[2018-05-25] MEDS: ARIXTRA SUBQ SCH (08:58)
[2018-05-25] MEDS: NEURONTIN PO SCH ×3 (08:59→17:28)
[2018-05-25] MEDS: TUMS PO SCH (08:59)
[2018-05-25] MEDS: DOXYCYCLINE 100 MG in NS 250 ML IV SCH ×2 (08:59→20:43)
[2018-05-25] MEDS: ZYRTEC PO SCH (08:59)
[2018-05-25] MEDS: CALTRATE 600 + D PO SCH (09:00)
--- NOTE | 2018-05-25 14:37 | PROGRESS NOTE ---
DATE: 05/25/2018 SUBJECTIVE: The patient has no focal complaints. She is much better. She looks more awake, more alert. OBJECTIVE: Vital Signs: Blood pressure is 156/86, heart rate of 85, respiratory rate 17, temperature 98.2, 98% on 2 L. Cardiovascular: Regular rate and rhythm. Pulmonary: Bilateral breath sounds. Clear to auscultation. Gastrointestinal: Soft, nontender, nondistended. Bowel sounds are positive. Extremities: No clubbing or cyanosis. Lymphatics: No peripheral edema. Neurologic: Nonfocal. LABORATORY DATA: White count 4, hemoglobin and hematocrit 12 and 38, platelets of 111,000. PH 7.45, pCO2 54, PaO2 84. Basic was normal. PROBLEM LIST: 1. Acute hypercapnic hypoxic respiratory failure due to COPD, early pneumonia. We will continue treatments. She seems much better today. I am going to continue her Xopenex and breathing treatments and follow. She still has diffuse wheezing. We will continue to monitor closely. 2. Acute COPD exacerbation, very reluctant to wean her steroids, but if she is wheezing a little less I think we could probably cut down on her steroids a little bit and see how she does. 3. Protein calorie malnutrition. We will initiate Clinimix. She is getting nutritional supplements. 4. Anxiety. Aware of that issue. We will continue to follow closely. 5. Tobacco abuse. Aware of diagnosis currently. 6. Disposition: Pending her clinical status. We will continue to monitor. I think if she continues to improve I anticipate at least transfer from the ICU. We will watch her there one more day and see how she does. We will get PT to work with her as well because she has gotten very weak. cc: Rene Zhu MD
[2018-05-25] MEDS: LASIX IV SCH (15:19)
[2018-05-25] MEDS: CLINIMIX E 4.25%-5% SOLUTION 1,000 ML IV SCH (15:19)
[2018-05-25] MEDS ORDERED: XOPENEX NEB INH SCH (16:00)
[2018-05-25] MEDS: MORPHINE IV PRN (16:06)
[2018-05-25] MEDS: PROTONIX IV SCH (17:28)
[2018-05-25] MEDS: ROCEPHIN 1 GM in NS 50 ML IV SCH (19:42)
[2018-05-25] MEDS: ZOCOR PO SCH (20:42)
[2018-05-25] MEDS: CELEXA PO SCH (20:43)
[2018-05-25] MEDS: COLACE PO SCH (20:43)
[2018-05-25] MEDS: KLONOPIN PO PRN (20:51)
[2018-05-26] MEDS: SOLU-MEDROL IV SCH ×3 (01:33→16:50)
[2018-05-26] MEDS: CLINIMIX E 4.25%-5% SOLUTION 1,000 ML IV SCH ×3 (01:37→20:53)
[2018-05-26] MEDS: ATROVENT NEB INH SCH ×6 (03:06→23:37)
[2018-05-26] MEDS: XOPENEX NEB INH SCH ×6 (03:06→23:37)
[2018-05-26] MEDS: TYLENOL PO PRN (03:44)
[2018-05-26] MEDS: MORPHINE IV PRN ×2 (04:12→18:08)
[2018-05-26 06:53] LABS: HEMATOCRIT 39.9 % (37.0-47.0); HEMOGLOBIN 13.2 g/dL (12.0-16.0); IMM GRAN% 1.9 % (0.0-0.5); LYMPH# 0.35 X1000 (1.2-3.4); LYMPH% 6.5 % (20.5-51.1); MCH 33.1 PG (27-31); MCHC 33.1 g/dL (33-37); MONO% 7.4 % (1.7-9.3); MPV 9.3 FL (7.4-10.4); NEUT# 4.54 X1000 (1.4-6.5); NEUT% 84.2 % (42.2-75.2); PLT 127 X1000 (130-400); RBC 3.99 XMIL (4.2-5.4); RDW 11.6 % (11.5-14.5); WBC 5.39 X1000 (4.8-10.8)
[2018-05-26 07:31] LABS: AGAP 12; BUN 24 mg/dL (8-22); CALCIUM 8.4 mg/dL (8.8-10.2); CHLORIDE 95 mmol/L (98-107); COSMO 297; CREATININE 0.5 mg/dL (0.5-0.9); ESTIMATED GFR > 60; GLUCOSE 245 mg/dL (70-104); MAGNESIUM 2.2 mg/dL (1.5-2.7); PHOSPHORUS 2.2 mg/dL (2.7-4.5); POTASSIUM 3.5 mmol/L (3.5-5.1); SODIUM 143 mmol/L (136-145); TCO2 36 mmol/L (25-35)
[2018-05-26] MEDS: SYMBICORT 160/4.5 MICROGM INHALER INH SCH ×2 (08:33→20:30)
[2018-05-26] MEDS: LASIX IV SCH (08:53)
[2018-05-26] MEDS: NEURONTIN PO SCH ×3 (08:53→16:50)
[2018-05-26] MEDS: CALTRATE 600 + D PO SCH (08:53)
[2018-05-26] MEDS: ZYRTEC PO SCH (08:53)
[2018-05-26] MEDS: ARIXTRA SUBQ SCH (08:53)
[2018-05-26] MEDS: CARDIZEM PO SCH ×3 (08:54→16:50)
[2018-05-26] MEDS: KLONOPIN PO PRN ×2 (08:54→20:51)
[2018-05-26 10:20] LABS: INR 0.96; PROTIME 13.3 Seconds (11.0-16.0)
[2018-05-26] MEDS ORDERED: NS 250 ML ONE (11:12)
--- NOTE | 2018-05-26 11:25 | PROGRESS NOTE ---
DATE: 05/26/2018 SUBJECTIVE: She looks better. She has lost IV access. OBJECTIVE: Vital signs: Blood pressure is 134/81, heart rate of 86, respiratory rate 18, temperature 97.7 degrees. Cardiovascular: Regular rate and rhythm. Pulmonary: Bilateral breath sounds clear to auscultation. GI: Soft, nontender, nondistended. Bowel sounds are positive. LABORATORY DATA: White count is 5, hemoglobin and hematocrit 13 and 39, platelets 127,000. Coagulase normal. Basic was normal. Sugar 245, phosphorus was 2.2. PROBLEM LIST: 1. Acute hypoxic, hypercapnic respiratory failure. She is on BiPAP at night now, seems to be doing better. 2. Acute chronic obstructive pulmonary disease exacerbation. I am going to continue to wean her steroids. Overall, she has improved. 3. Moderate protein calorie malnutrition. We will continue nutritional support and follow. 4. Anxiety is stable currently. We will continue intermittent medications. DISPOSITION: I think probably can move her soon out of the unit. We will continue to follow. At this point we need to work on pulmonary rehabilitation. She may need rehab. We will continue to follow closely. cc: Rene Zhu MD
[2018-05-26] MEDS: DOXYCYCLINE 100 MG in NS 250 ML IV SCH ×2 (13:29→20:51)
[2018-05-26] MEDS: PROTONIX IV SCH (16:50)
[2018-05-26] MEDS: ROCEPHIN 1 GM in NS 50 ML IV SCH (18:08)
[2018-05-26] MEDS: ZOCOR PO SCH (20:51)
[2018-05-26] MEDS: CELEXA PO SCH (20:51)
[2018-05-26] MEDS: COLACE PO SCH (20:51)
[2018-05-27] MEDS: MORPHINE IV PRN ×3 (02:29→20:27)
[2018-05-27] MEDS: SOLU-MEDROL IV SCH ×3 (02:30→16:02)
[2018-05-27] MEDS: ATROVENT NEB INH SCH ×6 (03:38→23:31)
[2018-05-27] MEDS: XOPENEX NEB INH SCH ×6 (03:38→23:31)
[2018-05-27 05:29] LABS: BE 18.5 mmoll (-3.0-3.0); BLOOD TYPE ARTERIAL; HCO3-(ACT) 39.2 mmoll (20.0-26.0); METHB 0.9 % (0.0-1.5); O2(CT) 18.8 mL/dL (15.0-23.0); O2HB 92.9 % (95.0-99.0); PO2(98.6) 71 mmHg (60-100); SAMPLE BLOOD; THB 14.4 g/dL (11.5-17.4); pH(98.6) 7.53 (7.35-7.45)
[2018-05-27 05:32] LABS: ALLEN TEST YES; MODALITY BI PAP; PCO2(98.6) 53 mmHg (35-45)
[2018-05-27 06:36] LABS: IMM GRAN# 0.03 X1000 (0.0-0.04); RDW 11.2 % (11.5-14.5)
[2018-05-27 06:53] LABS: ESTIMATED GFR > 60
[2018-05-27 06:54] LABS: AGAP 9; BUN 27 mg/dL (8-22); CALCIUM 8.4 mg/dL (8.8-10.2); CHLORIDE 88 mmol/L (98-107); COSMO 277; CREATININE 0.4 mg/dL (0.5-0.9); GLUCOSE 161 mg/dL (70-104); MAGNESIUM 2.1 mg/dL (1.5-2.7); POTASSIUM 3.6 mmol/L (3.5-5.1); SODIUM 134 mmol/L (136-145); TCO2 37 mmol/L (25-35)
[2018-05-27 07:05] LABS: HEMOGLOBIN 13.5 g/dL (12.0-16.0); IMM GRAN% 0.5 % (0.0-0.5); LYMPH# 0.46 X1000 (1.2-3.4); MCH 32.4 PG (27-31); MCHC 32.9 g/dL (33-37); MCV 98.3 FL (81-99); MONO# 0.45 X1000 (0.11-0.59); MONO% 6.8 % (1.7-9.3); MPV 9.6 FL (7.4-10.4); NEUT# 5.65 X1000 (1.4-6.5); NEUT% 85.7 % (42.2-75.2); PLT 140 X1000 (130-400); RBC 4.17 XMIL (4.2-5.4); WBC 6.59 X1000 (4.8-10.8)
[2018-05-27 08:56] LABS: LYMPHS 6 % (21-51); MONO 5 % (1-9); NRBC 1 % (0-0); SEGS 87 % (42-75)
[2018-05-27] MEDS: NEURONTIN PO SCH ×3 (09:01→16:01)
[2018-05-27] MEDS: CALTRATE 600 + D PO SCH (09:01)
[2018-05-27] MEDS: CARDIZEM PO SCH ×3 (09:01→16:01)
[2018-05-27] MEDS: ZYRTEC PO SCH (09:01)
[2018-05-27] MEDS: LASIX IV SCH (09:02)
[2018-05-27] MEDS: DOXYCYCLINE 100 MG in NS 250 ML IV SCH ×2 (09:02→20:31)
[2018-05-27] MEDS: CLINIMIX E 4.25%-5% SOLUTION 1,000 ML IV SCH ×2 (09:02→17:04)
[2018-05-27] MEDS: MYCOSTATIN SUSP PO SCH ×4 (09:02→20:27)
[2018-05-27] MEDS: ARIXTRA SUBQ SCH (09:02)
[2018-05-27] MEDS: NORCO-7.5 PO PRN ×2 (09:19→16:01)
[2018-05-27] MEDS: SYMBICORT 160/4.5 MICROGM INHALER INH SCH ×2 (11:07→20:19)
[2018-05-27] MEDS: PROTONIX IV SCH (17:03)
[2018-05-27] MEDS: SODIUM CHLORIDE 0.9% INJ SCH (17:03)
[2018-05-27] MEDS: ROCEPHIN 1 GM in NS 50 ML IV SCH (18:05)
[2018-05-27] MEDS: CELEXA PO SCH (20:27)
[2018-05-27] MEDS: COLACE PO SCH (20:27)
[2018-05-27] MEDS: KLONOPIN PO PRN (20:27)
[2018-05-27] MEDS: ZOCOR PO SCH (20:27)
[2018-05-27] MEDS: TYLENOL PO PRN (23:41)
[2018-05-28] MEDS: SOLU-MEDROL IV SCH ×3 (01:05→17:51)
--- NOTE | 2018-05-28 01:52 | PROGRESS NOTE ---
DATE: 05/27/2018 SUBJECTIVE: The patient states that she is feeling better. Denies any chest pain, palpitations. Denies any fevers or chills currently. OBJECTIVE: Vital Signs: Temperature 98, pulse 70, respiratory rate 25, BP 146/90. She has just recently come off BiPAP and we are attempting on nasal cannula. HEENT: Normocephalic. CARDIOVASCULAR: Regular rate. Chest: Clear. Abdomen: Soft. Extremities: Moves all extremities. ASSESSMENT: 1. Acute hypoxic respiratory failure, currently back on nasal cannula. 2. Chronic obstructive pulmonary disease with exacerbation. 3. Moderate protein calorie malnutrition. 4. Adult failure to thrive. PLAN: We will continue the patient in the hospital. Continue Clinimix, Rocephin, doxycycline. Continue Lasix. We will attempt to wean her Solu-Medrol and we will follow. cc: Francois Ramirez MD
[2018-05-28] MEDS: CLINIMIX E 4.25%-5% SOLUTION 1,000 ML IV SCH ×3 (03:13→22:19)
[2018-05-28] MEDS: ATROVENT NEB INH SCH ×6 (03:38→23:26)
[2018-05-28] MEDS: XOPENEX NEB INH SCH ×6 (03:38→23:26)
[2018-05-28] MEDS: MORPHINE IV PRN ×2 (05:48→21:07)
[2018-05-28] MEDS: SYMBICORT 160/4.5 MICROGM INHALER INH SCH ×2 (07:36→19:45)
[2018-05-28] MEDS: MYCOSTATIN SUSP PO SCH ×4 (09:04→20:59)
[2018-05-28] MEDS: CARDIZEM PO SCH ×3 (09:04→17:52)
[2018-05-28] MEDS: LASIX IV SCH (09:04)
[2018-05-28] MEDS: NEURONTIN PO SCH ×3 (09:05→17:51)
[2018-05-28] MEDS: DOXYCYCLINE 100 MG in NS 250 ML IV SCH ×2 (09:05→20:59)
[2018-05-28] MEDS: ZYRTEC PO SCH (09:05)
[2018-05-28] MEDS: CALTRATE 600 + D PO SCH (09:05)
[2018-05-28] MEDS: ARIXTRA SUBQ SCH (09:05)
[2018-05-28] MEDS: NORCO-7.5 PO PRN (15:17)
[2018-05-28] MEDS: PROTONIX IV SCH (17:52)
[2018-05-28] MEDS: ROCEPHIN 1 GM in NS 50 ML IV SCH (18:44)
[2018-05-28] MEDS: CELEXA PO SCH (21:00)
[2018-05-28] MEDS: ZOCOR PO SCH (21:00)
[2018-05-28] MEDS: COLACE PO SCH (21:00)
[2018-05-28] MEDS: KLONOPIN PO PRN (21:07)
[2018-05-29] MEDS: SOLU-MEDROL IV SCH ×3 (01:54→18:50)
--- NOTE | 2018-05-29 03:38 | PROGRESS NOTE ---
DATE: 05/28/2018 SUBJECTIVE: The patient notes that she is still very tired and fatigued. Denies any chest pain or palpitations. Her breathing has improved somewhat. PHYSICAL EXAMINATION: Vital Signs: Temperature 98.5, pulse 88, respiratory rate 25, BP 146/90. General: The patient is awake, alert. She is in acute hypoxic respiratory failure. Oxygen has actually improved. We have weaned her off the BiPAP. She is currently on nasal cannula. HEENT: Normocephalic. Neck: Supple. Cardiovascular: Regular rate. No murmurs. Chest: Clear. Minimal wheezing. No appreciable crackles. Abdomen: Soft and nondistended. Extremities: Moves all extremities. Neurologic: No focal changes. She is awake, alert, and oriented. ASSESSMENT: 1. Acute hypoxic respiratory failure. 2. Acute hypercapnic respiratory failure. 3. Chronic obstructive pulmonary disease with exacerbation. 4. Moderate protein calorie malnutrition. 5. Chronic anxiety. PLAN: We will continue the patient in the hospital. Continue Lasix IV, Solu-Medrol, and Clinimix. We will continue antibiotics. Hopefully, she can transition to the floor when a bed is available. cc: Francois Ramirez MD
[2018-05-29] MEDS: ATROVENT NEB INH SCH ×6 (03:57→23:28)
[2018-05-29] MEDS: XOPENEX NEB INH SCH ×6 (03:58→23:28)
[2018-05-29 06:00] LABS: HEMATOCRIT 40.8 % (37.0-47.0); HEMOGLOBIN 13.5 g/dL (12.0-16.0); MCH 32.6 PG (27-31); MCHC 33.1 g/dL (33-37); MCV 98.6 FL (81-99); MPV 9.5 FL (7.4-10.4); RBC 4.14 XMIL (4.2-5.4); RDW 11.3 % (11.5-14.5); WBC 11.58 X1000 (4.8-10.8)
[2018-05-29 06:32] LABS: AGAP 11; ALKALINE PHOSPHATASE 56 U/L (32-104); BUN 36 mg/dL (8-22); CALCIUM 8.6 mg/dL (8.8-10.2); CHLORIDE 91 mmol/L (98-107); COSMO 286; CREATININE 0.4 mg/dL (0.5-0.9); ESTIMATED GFR > 60; GLUCOSE 168 mg/dL (70-104); GOT 19 U/L (10-30); GPT 60 U/L (10-36); MAGNESIUM 2.2 mg/dL (1.5-2.7); POTASSIUM 3.9 mmol/L (3.5-5.1); SODIUM 137 mmol/L (136-145); TCO2 35 mmol/L (25-35); TOTAL PROTEIN 5.1 g/dL (6.3-8.3)
[2018-05-29] MEDS: NORCO-7.5 PO PRN ×3 (06:57→22:10)
[2018-05-29] MEDS: SYMBICORT 160/4.5 MICROGM INHALER INH SCH ×2 (08:31→20:04)
--- NOTE | 2018-05-29 09:25 | Diag Imaging Result Doc PS360 ---
EXAM: CHEST-2 VIEWS HISTORY: hypoxia TECHNIQUE: PA and Lateral chest x-ray COMPARISON: 05/23/2018 FINDINGS: The cardiomediastinal silhouette is within normal limits. The pulmonary vasculature is not congested. There are small bilateral pleural effusions. Diffuse interstitial edema has resolved. Mildly prominent interstitial markings are persists at the bases. There is pulmonary emphysema. There are surgical clips right apex. A left-sided PICC catheter has been placed with its tip at the caval atrial junction. IMPRESSION: 1.PICC catheter tip at the caval atrial junction. 2.Pulmonary emphysema with bilateral pleural effusions and mild basilar interstitial prominence. Electronically signed by Rosaura Chacko 05/29/2018 9:23 AM
[2018-05-29] MEDS: CLINIMIX E 4.25%-5% SOLUTION 1,000 ML IV SCH ×2 (09:27→22:15)
[2018-05-29] MEDS: LASIX IV SCH (09:29)
[2018-05-29] MEDS: MYCOSTATIN SUSP PO SCH ×4 (09:29→22:10)
[2018-05-29] MEDS: ARIXTRA SUBQ SCH (09:29)
[2018-05-29] MEDS: NEURONTIN PO SCH ×3 (09:29→18:50)
[2018-05-29] MEDS: CALTRATE 600 + D PO SCH (09:29)
[2018-05-29] MEDS: ZYRTEC PO SCH (09:29)
[2018-05-29] MEDS: CARDIZEM PO SCH ×3 (09:29→18:50)
[2018-05-29] MEDS: DOXYCYCLINE 100 MG in NS 250 ML IV SCH ×2 (09:29→22:10)
[2018-05-29] MEDS: ROCEPHIN 1 GM in NS 50 ML IV SCH (18:49)
[2018-05-29] MEDS: COLACE PO SCH (22:10)
[2018-05-29] MEDS: KLONOPIN PO PRN (22:10)
[2018-05-29] MEDS: CELEXA PO SCH (22:11)
[2018-05-29] MEDS: ZOCOR PO SCH (22:11)
--- NOTE | 2018-05-30 01:26 | PROGRESS NOTE ---
DATE: 05/29/2018 SUBJECTIVE: Patient notes that she is feeling tremendously better. She actually states that she ambulated a very short distance with physical therapy. She has been sitting up for about 30 minutes. Denies any chest pain, palpitation. Denies any fevers or chills. Denies any GI or issues. Notes overall that her strength has started to slowly improve. A few days ago states she was unable to order picker a fork and feed herself but now she is actually able to do so and to stand. PHYSICAL EXAMINATION: Vital Signs: Temperature 98 degrees, pulse 88, respiratory 22, BP 145/88. General: The patient is awake, currently in no respiratory distress. She is very pleasant to talk with. HEENT: Normocephalic. Neck: Supple. CARDIOVASCULAR: Regular rate. No murmurs. Chest: Decreased but equal breath sounds bilaterally. Minimal wheezing throughout. No crackles and nonlabored. Abdomen: Soft, nondistended. Extremities: Moves all extremities. ASSESSMENT: 1. Acute hypoxic and hypercapnic respiratory failure. She currently is off BiPAP and hopefully can continue to do so. 2. Chronic obstructive pulmonary disease with an acute exacerbation, continues to improve. She is currently on Solu-Medrol 60 IV q.8. We will decrease this to 40 IV q.8. We will continue Rocephin and doxycycline. 3. Moderate protein calorie malnutrition. 4. Pulmonary edema. We will continue Lasix 40 IV. 5. Malnutrition. We will continue Clinimix. PLAN: Overall, patient has improved. We will transfer her to the floor. Hopefully, she will continue to improve and can discharge home over the next 3 or 4 days although I certainly expect that she will need rehab prior to discharge. cc: Francois Ramirez MD
[2018-05-30] MEDS: SOLU-MEDROL IV SCH ×3 (02:36→17:23)
[2018-05-30] MEDS: XOPENEX NEB INH SCH ×5 (03:58→19:23)
[2018-05-30] MEDS: ATROVENT NEB INH SCH ×5 (03:59→19:23)
[2018-05-30] MEDS: PRILOSEC PO SCH (06:06)
[2018-05-30] MEDS: NORCO-7.5 PO PRN ×3 (06:06→18:00)
[2018-05-30] MEDS: SYMBICORT 160/4.5 MICROGM INHALER INH SCH ×2 (07:58→19:22)
[2018-05-30] MEDS: MYCOSTATIN SUSP PO SCH ×4 (10:38→21:38)
[2018-05-30] MEDS: ARIXTRA SUBQ SCH (10:38)
[2018-05-30] MEDS: CARDIZEM PO SCH ×3 (10:38→17:23)
[2018-05-30] MEDS: NEURONTIN PO SCH ×3 (10:38→17:23)
[2018-05-30] MEDS: ZYRTEC PO SCH (10:39)
[2018-05-30] MEDS: DOXYCYCLINE PO SCH ×2 (10:39→21:38)
[2018-05-30] MEDS: LASIX IV SCH (10:39)
[2018-05-30] MEDS: CALTRATE 600 + D PO SCH (13:14)
[2018-05-30] MEDS: ROCEPHIN 1 GM in NS 50 ML IV SCH (18:03)
[2018-05-30] MEDS: COLACE PO SCH (21:38)
[2018-05-30] MEDS: CELEXA PO SCH (21:38)
[2018-05-30] MEDS: ZOCOR PO SCH (21:38)
[2018-05-31] MEDS: ATROVENT NEB INH SCH ×5 (00:05→15:57)
[2018-05-31] MEDS: XOPENEX NEB INH SCH ×5 (00:05→15:57)
--- NOTE | 2018-05-31 03:18 | PROGRESS NOTE ---
DATE: 05/30/2018 SUBJECTIVE: Patient notes that she is feeling okay. In fact states she is starting to feel a little bit better. She is breathing easier. PHYSICAL EXAMINATION: Vital Signs: Temperature 98.7 degrees, pulse 84, respiratory 17, BP 117/81. General: Patient is awake, alert. She is in mild respiratory distress which is much improved from the last few days. HEENT: Normocephalic. Neck: Supple. CARDIOVASCULAR: Regular rate. No murmurs. Chest: Clear. No current crackles. No wheezing. Abdomen: Soft and nondistended. Extremities: Moves all extremities. ASSESSMENT: 1. Acute on chronic hypoxic respiratory failure. 2. Acute chronic obstructive pulmonary disease exacerbation. 3. Moderate protein calorie malnutrition. 4. Anxiety. PLAN: We will stop Clinimix at this point. Continue antibiotics. Change her Lasix to p.o. Discontinue her Sousa and hopefully she can transition home over the next 1 or 2 days. If she is not able to regain her strength, she may require rehab. cc: Francois Ramirez MD
[2018-05-31] MEDS: NORCO-7.5 PO PRN ×3 (04:27→16:48)
[2018-05-31] MEDS: SOLU-MEDROL IV SCH (06:33)
[2018-05-31] MEDS: PRILOSEC PO SCH (06:33)
[2018-05-31] MEDS: SYMBICORT 160/4.5 MICROGM INHALER INH SCH (08:20)
[2018-05-31] MEDS ORDERED: NEURONTIN PO SCH (09:00)
[2018-05-31] MEDS: ARIXTRA SUBQ SCH (11:16)
[2018-05-31] MEDS: MYCOSTATIN SUSP PO SCH ×3 (11:17→16:49)
[2018-05-31] MEDS: DOXYCYCLINE PO SCH (11:18)
[2018-05-31] MEDS: CARDIZEM PO SCH ×2 (11:18→16:48)
[2018-05-31] MEDS: LASIX IV SCH (11:18)
[2018-05-31] MEDS: CALTRATE 600 + D PO SCH (11:18)
[2018-05-31] MEDS: ZYRTEC PO SCH (11:19)
[2018-05-31 12:36] VITALS: BP 143/72
--- NOTE | 2018-05-31 16:52 | DISCHARGE SUMMARY ---
ADMISSION DATE: 05/20/2018 DISCHARGE DATE: 05/31/2018 DIAGNOSES: 1. Acute hypoxic and hypercapnic respiratory failure. 2. Chronic obstructive pulmonary disease with acute exacerbation improving. 3. Moderate protein calorie malnutrition. 4. Pulmonary edema. DIAGNOSTICS: 1. Chest x-ray revealed COPD with interstitial infiltrates at the lung bases. 2. Bilateral lower extremity Doppler revealed no evidence for DVT at lower extremities. 3. CTA pulmonary revealed very severe pulmonary emphysema. No evidence of pulmonary embolism. 4. Chest x-ray 05/29/2018 revealed a PICC catheter at the caval atrial junction and pulmonary emphysema with bilateral pleural effusions and mild basilar interstitial prominence. MICROBIOLOGY: Sputum culture revealed normal jose. HOSPITAL COURSE: Ms Morfin presented to the hospital complaining of shortness of breath. Room air saturations were 85% when she arrived, she was felt to have COPD exacerbation and was found to be in hypoxic hypercapnic respiratory failure. She required BiPAP for about the 1st 2-1/2 to 3 days then she would use BiPAP at night and p.r.n. Thankfully she has been off BiPAP except for sleep for the last 5 or 6 days and she states that she is doing much better. She feels that she is back to her normal. CTA pulmonary and lower extremity Doppler were performed which were both negative for DVT or PE due to a D-dimer of 0.81. She was diuresed. She does have chronic malnutrition and she was placed on Clinimix. On the we discontinued her Sousa, changed her Lasix over to p.o. She has tolerated this well and thankfully she is ready for discharge. DISCHARGE VITAL SIGNS: Blood pressure is 143/72 with a heart rate of 100, respirations 20, temperature 97.7 degrees oral with O2 saturation 97 to 100 percent on 2 L nasal cannula. Cardiovascular: Regular rate and rhythm. S1 and S2 are appreciated. No murmurs, no gallops. Pulmonary: Breath sounds are diminished at the bases but clear, chest rises and falls symmetric with respiration. Gastrointestinal: Soft, nontender, nondistended. Bowel sounds in all 4 quadrants. DISCHARGE MEDICATIONS: Prilosec 40 mg p.o. daily, Medrol Dosepak as directed, [place] 7.5/325 q.4 hours p.r.n., Neurontin 100 mg p.o. t.i.d., Arixtra 2.5 subcu daily, doxycycline 100 mg p.o. b.i.d., Colace 100 mg p.o. at bedtime, Cardizem 30 mg p.o. t.i.d., Klonopin 0.5 p.o. b.i.d., Tylenol 650 p.o. q.6 hours, Celexa 20 mg p.o. at bedtime, Flexeril 5 mg p.o. daily, Zyrtec 10 mg p.o. daily, calcium 1000 mg p.o. daily, Ventolin inhaler 2 puffs b.i.d. p.r.n. , Zocor 40 mg p.o. at bedtime, Allergy Relief eye drops 2 drops both eyes as needed, Symbicort 160/ 4.5 two puffs inhaled b.i.d. She is being discharged in transfer for rehab in stable condition. TIME SPENT: Greater than 30 minutes. Dictated by NELDA Vee for Francois Ramirez MD This chart was documented by, NELDA Vee and accurately reflects the services performed, treatment plan and medical decisions as attested by the providers signature Francois Ramirez MD. cc: NELDA Vee MD [facility]
[2018-05-31] MEDS: ROCEPHIN 1 GM in NS 50 ML IV SCH (18:58)
[2018-06-01] MEDS ORDERED: SOLU-MEDROL IV SCH (06:30)
--- NOTE | 2018-06-01 06:56 | DISCHARGE SUMMARY ---
ADMISSION DATE: 05/20/2018 DISCHARGE DATE: 05/31/2018 ADDENDUM: The patient seen and examined by myself. Full note dictated and discussed with nurse practitioner. On discharge, patient is awake, alert, feeling much better. She is oriented. She is in minimal respiratory distress. She is no longer requiring oxygen. Her COPD has improved; however, she is still very weak and fatigued and, therefore, we will continue her in rehab and physical therapy. cc: Francois Ramirez MD
== END 2018-05-31 19:45 | DRG 189 ==
LOC: P.ED 16:29 → SUATTDRO 21:41 → P.EDIPHOLD 21:41 → P.ICU 05-21 14:07 → P.MEDSURG 05-29 12:50
PROVIDERS: ATTEND Family Medicine
CPT/HCPCS: 36415; 36569; 71010; 71020; 71045; 71046; 71275; 80048; 80053; 80074; 81001; 82550; 82553; 82805; 83735; 83880; 84100; 84484; 85025; 85027; 85379; 85610; 87070; 87205; 93005; 93970; 94640; 94660; 94667; 94668; 94761; 94799; 96365; 96366; 96367; 96372; 96375; 96376; 97110; 97163; 97166; 97530; 97535; 99285; A9270; C9113; J0696; J1650; J1652; J1940; J2060; J2270; J2920; J2930; J7030; J7050; J7506; J7512; Q9967; S0164